=== PATIENT | male | born 1945 | race American Indian/Alaskan Native ===

== ENCOUNTER 2019-04-08 18:45 | Emergency (ER) | payer OTHER, MEDICARE ==
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
[2019-04-08] MEDS ORDERED: HYDROcodone/ACETAMINOPHEN 5-325 MG TAB PO ONE (21:43)
--- NOTE | 2019-04-08 22:26 | XRay Report ---
Right hip 2 views INDICATION: Right hip pain IMPRESSION: No fracture or subluxation of the right appreciated. Penile prosthesis noted. Signer Name: Josias Haider MD Signed: 04/08/2019 10:22 PM Workstation Name: [id number]
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
[2019-04-08 22:56] LABS: Basophils % (Auto) 0.4 % (0.0-1.8); Eosinophils # (Auto) 0.1 K/mm3 (0.0-0.4); Eosinophils % (Auto) 1.4 % (0.0-4.3); Hematocrit 30.1 % (35.5-45.6); Hemoglobin 9.8 gm/dl (11.8-15.2); Lymphocytes # (Auto) 0.7 K/mm3 (1.2-5.4); Mean Corpuscular HGB Conc 32 % (32-34); Mean Corpuscular Volume 98 fl (84-94); Monocytes # (Auto) 0.7 K/mm3 (0.0-0.8); Platelet Count 287 K/mm3 (140-440); Red Blood Count 3.09 M/mm3 (3.65-5.03)
[2019-04-08 23:01] LABS: Red Cell Distribution Width 20.2 % (13.2-15.2)
[2019-04-08 23:19] LABS: Calcium 10.3 mg/dL (8.4-10.2)
[2019-04-08] MEDS ORDERED: INSULIN REGULAR, HUMAN 100 UNITS/1 ML SUB-Q ONE (23:24)
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
[2019-04-09 01:25] VITALS: BP 125/71
== END 2019-04-09 01:32 | disposition home or self-care (01) ==
LOC: ED 18:45
DX: R07.89 Other chest pain (principal); M25.551 Pain in right hip; M54.2 Cervicalgia; E11.65 Type 2 diabetes mellitus with hyperglycemia; E11.22 Type 2 diabetes mellitus with diabetic chronic kidney disease; I12.0 Hypertensive chronic kidney disease with stage 5 chronic kidney disease or end stage renal disease; N18.6 End stage renal disease; Z99.2 Dependence on renal dialysis
CPT/HCPCS: 36415; 70450; 71046; 72125; 80048; 82805; 82962; 85025; 96372; J1815